=== PATIENT | female | born 1960 | race Caucasian/White ===

== ENCOUNTER 2019-09-18 06:40 | Day surgery (SDC) | payer OTHER ==
[2019-09-18] MEDS ORDERED: FENTANYL PF 100MCG/2ML VIAL IV ONE (06:41)
[2019-09-18] MEDS ORDERED: MIDAZOLAM HCL 2MG/2ML VIAL IV ONE (06:41)
[2019-09-18] MEDS ORDERED: LIDOCAINE 2% MDV (20MG/ML) 20ML VIAL IV ONE (06:41)
[2019-09-18] MEDS ORDERED: PROPOFOL 10 MG/ML VIAL IV ONE (06:41)
[2019-09-18] MEDS ORDERED: RINGERS SOLUTION,LACTATED 1,000 ML IV ONE (07:08)
[2019-09-18] MEDS ORDERED: LIDOCAINE 1% W/EPI 1:100,000 MDV 20 ML VIAL SQ ONE (07:58)
[2019-09-18] MEDS ORDERED: DEXAMETHASONE PRESERVATIVE FREE 10MG/ML VIAL IM ONE (07:58)
[2019-09-18] MEDS ORDERED: BUPIVACAINE 0.5% W/EPI MPF 30 ML VIAL SQ ONE (07:58)
--- NOTE | 2019-09-18 12:26 | Operative Note - [place] ---
DATE OF SURGERY: 09/18/2019 PREOPERATIVE DIAGNOSIS: CERVICAL SPONDYLOSIS WITHOUT MYELOPATHY, ICD-10 CODE M47.812. OPERATION: RADIOFREQUENCY RHIZOTOMY BILATERAL CERVICAL FACETS AT C4-C5, C5-C6, AND C6-C7. SURGEON: Dequan Gar D.O. ANESTHESIA: Local sedation. ANESTHESIA PROVIDER: REINIER Barriga CRNA INDICATION: This patient presents with primary neck pain. Examination showed tenderness cervical spine. Range of motion does cause pain in the neck with extension. Diagnostic imaging shows diffuse multiple level spondylitic change. A facet series showed 75% relief. Due to the failure of therapy and the success of the facet series, the patient presents for rhizotomy for more mcfp relief. PROCEDURE: Intravenous line, vital sign monitoring, IV sedation, prepped and draped, sterile technique. Under imaging the facet levels cervical spine in the area of pain were identified and marked at C4-C5, C5-C6, and C6-C7 bilateral. Each one of these points on the skin were infiltrated. A 20-gauge rhizotomy cannula was positioned each side bilateral, stimulation trial was conducted. Rhizotomy burn performed at 80 degrees 90 seconds at each. Local anti- inflammatory in the sites. Topic antibiotic, sterile dressing was applied. Will monitor and evaluate. JOB NUMBER: [id number] MTDD
== END 2019-09-18 09:10 | disposition home or self-care (01) ==
LOC: SUR 06:40
PROVIDERS: ATTEND Pain Medicine Interventional Pain Medicine
DX: M47.812 Spondylosis without myelopathy or radiculopathy, cervical region (principal); R60.1 Generalized edema; F90.9 Attention-deficit hyperactivity disorder, unspecified type; M19.90 Unspecified osteoarthritis, unspecified site; J45.909 Unspecified asthma, uncomplicated; G47.33 Obstructive sleep apnea (adult) (pediatric)
CPT/HCPCS: 64633; 64634 ×2; 01936; J1100; J3010; J7120